=== PATIENT | female | born 1980 | race Caucasian/White ===

== ENCOUNTER → 2016-06-14 | Outpatient (CLI) | payer OTHER ==
[~2016-06-14] MED LIST: AMIT25TA10 PO; HCTZ PO; MIREIUD IU; PANT40TA2 PO; PERC5TAB PO; ZANT300T PO
--- NOTE | 2016-06-14 17:53 | REP ---
Digital screening mammography with CAD: History: Baseline mammogram. No comparison studies. Findings: There is asymmetric density in the upper outer quadrant of the left breast compared to the right with a questionable mass lesion approximately 1.5 cm in diameter. This merits further evaluation. The right breast is unremarkable mammographically. No worrisome skin change is seen. No microcalcification is observed. Impression: BIRADS category 0 incomplete breast imaging. Asymmetric density question mass upper outer quadrant left breast. Diagnostic left breast mammography and focused left breast sonography suggested. BI-RADS/ACR category 0 mammogram, incomplete. Additional imaging and/or prior images are needed before a final assessment can be assigned. This mammogram was interpreted with the aid of an FDA-approved computer-aided detection system. The patient states she/he had a clinical breast exam in December 2015. The patient letter being requested is M0.
== END ==
LOC: M WHC 15:33
PROVIDERS: ATTEND Obstetrics & Gynecology
DX: Z12.31 Encounter for screening mammogram for malignant neoplasm of breast (principal); R92.8 Other abnormal and inconclusive findings on diagnostic imaging of breast

== ENCOUNTER → 2016-06-20 | Outpatient (CLI) | payer OTHER ==
--- NOTE | 2016-06-20 15:15 | REP ---
DIGITAL DIAGNOSTIC UNILATERAL LEFT BREAST MAMMOGRAPHY WITH CAD AND FOCUSED LEFT BREAST SONOGRAPHY: HISTORY: Baseline screening mammography from June 14, 2016 was BIRADS category 0 incomplete because of asymmetric somewhat nodular upper outer quadrant density on the left. Diagnostic imaging was recommended. MAMMOGRAPHIC FINDINGS: Heterogeneously dense fibroglandular tissue is seen in the upper outer quadrant of the left breast on magnified focal spot compression CC, MLO and true ML views. The area in question compresses away and is less nodular. No mass is seen. No spiculation is observed. No microcalcification is seen. SONOGRAPHIC FINDINGS: Focused left breast sonography shows heterogeneous fibroglandular background echotexture. There is one 5 mm cyst seen at approximate 12 o'clock position. This would not account for the mammographic opacity seen on the screening study. No other cyst is seen. No mass lesion is seen by ultrasound. No suspicious sonographic finding. IMPRESSION: BIRADS category 2 benign left breast imaging. Repeat screening mammography recommended 1 year. BI-RADS/ACR category 2 mammogram. Benign finding(s). Routine annual screening mammography (for women over age 40). This mammogram was interpreted with the aid of an FDA-approved computer-aided detection system. The patient states she/he had a clinical breast exam in December 2015. The patient letter being requested is M1. Signed by Curt Heredia MD 06/20/2016 04:32 P
== END ==
LOC: M RAD 13:49
PROVIDERS: ATTEND Obstetrics & Gynecology
DX: Z12.31 Encounter for screening mammogram for malignant neoplasm of breast (principal); R92.8 Other abnormal and inconclusive findings on diagnostic imaging of breast
CPT/HCPCS: 76642; G0206

== ENCOUNTER → 2016-11-29 | Outpatient (CLI) | payer OTHER, SELFPAY ==
--- NOTE | 2016-11-29 20:23 | ECGEPIP ---
Stationary ECG Study [facility] Test Date: 2016-11-29 Pat Name: LINDSAY ALLEN Department: Room: - Gender: F [employer]: ANDREEA : 1980 Requested By: Ty Roy @ [facility] Order Number: [id number] Reading MD: Kelley Villeda Measurements Intervals [place] Rate: 67 P: 43 [place]: 157 QRS: 0 QRSD: 76 T: 20 QT: 380 QTc: 402 Interpretive Statements SINUS RHYTHM STABLE C/W 06/24/15 Electronically Signed On 11-29-2016 20:23:30 EDT by Kelley Villeda
== END ==
LOC: M EKG 17:23
PROVIDERS: ATTEND Orthopaedic Surgery
DX: Z01.818 Encounter for other preprocedural examination (principal); I10 Essential (primary) hypertension

== ENCOUNTER → 2018-02-05 | Outpatient (CLI) | payer OTHER | LOC: M ADAMS 16:48 | DX: M54.42 Lumbago with sciatica, left side (principal) | CPT/HCPCS: 72100 ==

== ENCOUNTER → 2019-12-16 | Outpatient (CLI) | payer OTHER ==
[~2019-12-16] MED LIST changes: +ATOR1TAB21; +FLUO10CA16; +METO1TAB7; +PANT40TA29 PO; +RANI15TA PO
--- NOTE | 2019-12-17 12:51 | REP ---
Examination Requested: Cookie Swallow Reason For Exam: Gastroesophageal reflux disease The procedure was performed by LILY Shahid, under the direct supervision of Dr. Heredia. The procedure was performed with Yakelin Zapata from speech pathology present. 5 ml aliquots of thin, pudding, mixed fruit, soft food, hard food and pill consistency barium was administered. No aspiration or penetration was visualized during the course of the exam. The detailed report of this examination will be provided by speech pathology. 0.9 minutes of fluoroscopy time was utilized for this procedure. Reviewed by LILY Bo 12/17/2019 07:46 A Electronically Signed by Curt Heredia MD 12/17/2019 12:42 P
== END ==
LOC: M ST 13:26
PROVIDERS: ATTEND Physician Assistant Medical
DX: K21.9 Gastro-esophageal reflux disease without esophagitis (principal)

== ENCOUNTER → 2020-01-05 | Outpatient (CLI) | payer OTHER ==
--- NOTE | 2020-02-19 11:55 | REP ---
RIGHT UPPER QUADRANT ULTRASOUND: HISTORY: Pain. FINDINGS: Real time sonographic evaluation of the right upper quadrant is performed. The gallbladder demonstrates no evidence of intraluminal sludge or calculi, wall thickening or pericholecystic fluid. There is no intrahepatic or extrahepatic biliary dilatation, the common bile duct measuring 4 mm. The liver demonstrates diffuse heterogeneous increased echotexture compatible with diffuse fibrofatty infiltration. No gross liver mass is seen. The visualized pancreas is grossly unremarkable but not well seen due to overlying bowel gas. The right kidney demonstrates no hydronephrosis with normal size of 10.9 cm in length. IMPRESSION: Diffuse fatty infiltration of the liver. No other significant finding. MTDD
== END ==
LOC: M RAD 08:03
PROVIDERS: ATTEND Internal Medicine Gastroenterology
DX: R10.11 Right upper quadrant pain (principal); K76.0 Fatty (change of) liver, not elsewhere classified

== ENCOUNTER 2020-01-07 10:25 | Day surgery (SDC) | payer OTHER ==
[~2020-01-07 10:25] MED LIST changes: -ATOR1TAB21; -FLUO10CA16; -METO1TAB7; -PANT40TA29 PO; -RANI15TA PO
[2020-01-07] MEDS ORDERED: fentaNYL 100 MCG/2 ML INJECTION (J3010) ONE (11:28)
[2020-01-07] MEDS ORDERED: LIDOCAINE 2% 100MG/5ML SDV (FOR ANES.) ONE (11:28)
[2020-01-07] MEDS ORDERED: propofoL 200 MG/20 ML VIAL ONE (11:28)
--- NOTE | 2020-02-04 11:28 | ROOR ---
Patient Name: Melanie Maldonado Procedure Date: 01/07/2020 11:32 AM Date of : 1980 Age: 39 Room: [facility] Gender: Female Note Status: Hip Hop Artist Override Procedure: Upper Endoscopy + Biopsies Indications: Epigastric abdominal pain, Heartburn, Exclusion of Zhong's esophagus Providers: Horacio Mosqueda MD Referring MD: Diamond Silverman NP Requesting Provider: Medicines: Monitored Anesthesia Care Complications: No immediate complications. Procedure: Pre-Anesthesia Assessment: - The heart rate, respiratory rate, oxygen saturations, blood pressure, adequacy of pulmonary ventilation, and response to care were monitored throughout the procedure. The Endoscope was introduced through the mouth, and advanced to the second part of duodenum. The upper GI endoscopy was accomplished without difficulty. The patient tolerated the procedure well. Findings: The Z-line was irregular and was found 40 cm from the incisors. Multiple biopsies were obtained with cold forceps for evaluation to rule out Zhong's Esophagus randomly at the gastroesophageal junction. No other significant abnormalities were identified in a careful examination of the stomach. Biopsies were taken with a cold forceps in the gastric antrum for Helicobacter pylori testing. The exam of the duodenum was otherwise normal. Impression: - Z-line irregular, 40 cm from the incisors. - Multiple biopsies were obtained at the gastroesophageal junction. - Biopsies were taken with a cold forceps for Helicobacter pylori testing. - The examination was otherwise normal. Recommendation: - Patient has a contact number available for emergencies. The signs and symptoms of potential delayed complications were discussed with the patient. Return to normal activities tomorrow. Written discharge instructions were provided to the patient. - High fiber diet. - Discharge patient to home. - Follow an antireflux regimen. - Continue present medications. - Await pathology results. - Telephone GI clinic for pathology results in 1 week. - Return to referring physician. - The findings and recommendations were discussed with the patient. Horacio Mosqueda MD Horacio Mosqueda MD 01/07/2020 11:47:23 AM Number of Addenda: 0 Note Initiated On: 01/07/2020 11:32 AM Estimated Blood Loss: Estimated blood loss: none.
[2020-03-05] MEDS ORDERED: RANI15TA PO (15:29)
[2020-03-05] MEDS ORDERED: METO1TAB7 (15:29)
[2020-03-05] MEDS ORDERED: PANT40TA29 PO (15:29)
[2020-03-05] MEDS ORDERED: ATOR1TAB21 (15:29)
[2020-03-05] MEDS ORDERED: FLUO10CA16 (15:29)
== END 2020-01-07 12:42 | disposition home or self-care (01) ==
LOC: M SDC 10:25
PROVIDERS: ATTEND Internal Medicine Gastroenterology
DX: K22.8 Other specified diseases of esophagus (principal); K29.70 Gastritis, unspecified, without bleeding; R10.13 Epigastric pain; I10 Essential (primary) hypertension; Z79.899 Other long term (current) drug therapy; Z88.2 Allergy status to sulfonamides
CPT/HCPCS: 43239; 88305; J3010

== ENCOUNTER → 2020-03-06 | Outpatient (CLI) | payer OTHER ==
[~2020-03-06] MED LIST changes: +ATOR1TAB21; +FLUO10CA16; +METO1TAB7; +PANT40TA29 PO; +RANI15TA PO
== END ==
LOC: M LABSMTC 08:23
PROVIDERS: ATTEND Anesthesiology
DX: Z01.812 Encounter for preprocedural laboratory examination (principal); Z20.828 Contact with and (suspected) exposure to other viral communicable diseases
CPT/HCPCS: C9803; U0003

== ENCOUNTER 2020-03-11 08:33 | Day surgery (SDC) | payer OTHER ==
[~2020-03-11] VITALS: Ht 157.5 cm; Wt 89.4 kg
[~2020-03-11 08:33] MED LIST changes: +LR 1,000 ML IV ONE; +MIDAZOLAM INJ 2MG/2ML VIAL (J2250 PER 1MG) As Ordered ONE; +fentaNYL 100 MCG/2 ML INJECTION (J3010) As Ordered ONE
[2020-03-11] MEDS ORDERED: METOCLOPRAMIDE INJ 10MG/2ML VIAL (J2765 PER 1) As Ordered ONE (10:31)
[2020-03-11] MEDS ORDERED: dexameTHASONE 4 MG/ML 1ML VIAL (J1100 PER 1MG) As Ordered ONE (10:31)
[2020-03-11] MEDS ORDERED: LIDOCAINE 2% 100MG/5ML SDV (FOR ANES.) As Ordered ONE (10:31)
[2020-03-11] MEDS ORDERED: ROCURONIUM BROMIDE 50 MG/5 ML VIAL As Ordered ONE (10:32)
[2020-03-11] MEDS ORDERED: SUGAMMADEX SODIUM 500 MG/5 ML VIAL (BRIDION) As Ordered ONE (10:34)
[2020-03-11] MEDS ORDERED: ACETAMINOPHEN 1000MG 100ML IV BTL (OFIRMEV) (J0131 PER 10MG) As Ordered ONE (10:34)
[2020-03-11] MEDS ORDERED: KETOROLAC 60MG 2ML VIAL As Ordered ONE (10:34)
[2020-03-11] MEDS ORDERED: propofoL 200 MG/20 ML VIAL As Ordered ONE (10:35)
[2020-03-11] MEDS ORDERED: GLYCOPYRROLATE INJ 0.2 MG/ML 2 ML VIAL As Ordered ONE (10:39)
[2020-03-11] MEDS ORDERED: ePHEDrine SULFATE 25 MG/5 ML(5MG/ML) SYRINGE As Ordered ONE (10:50)
[2020-03-11] MEDS ORDERED: NORCO, ANEXSIA 5/325MG TABLET (HYDROcodone/ACETAMINOPHEN) PO PRN (11:30)
[2020-03-11] MEDS ORDERED: NORCO, ANEXSIA 5/325MG TABLET (HYDROcodone/ACETAMINOPHEN) As Ordered ONE ×2 (11:32→11:34)
[2020-03-11] MEDS ORDERED: METOCLOPRAMIDE INJ 10MG/2ML VIAL (J2765 PER 1) IV PRN (11:45)
[2020-03-11] MEDS ORDERED: LR 1,000 ML IV SCH (11:45)
[2020-03-11] MEDS ORDERED: ONDANSETRON 4MG/2ML VIAL IV PRN (11:45)
[2020-03-11] MEDS ORDERED: oxyCODONE 5MG TAB PO PRN (11:45)
[2020-03-11] MEDS ORDERED: fentaNYL 100 MCG/2 ML INJECTION (J3010) IV PRN (11:45)
[2020-03-11] MEDS ORDERED: IBUPROFEN 600MG TAB PO PRN (11:45)
[2020-03-11 12:40] VITALS: BP 110/69
--- NOTE | 2020-03-12 06:55 | RO ---
DATE OF OPERATION: 03/11/2020 PREOPERATIVE DIAGNOSIS: Pain. POSTOPERATIVE DIAGNOSIS: Pain. FINDINGS: Normal pelvis. PROCEDURE: Diagnostic laparoscopy. SURGEON: Dr. Kera Liz TALENT AGENT: None. ANESTHESIA: General endotracheal anesthesia. SPECIMENS: None. BRIEF DESCRIPTION OF PROCEDURE AND FINDINGS: Melanie was brought to the operating room, where sufficient general endotracheal anesthesia was induced. She was prepped, draped, and positioned in the usual sterile fashion. She did not have a uterus to put a manipulator on, but we did put a sponge stick in the vagina to facilitate anatomic location from above, and then attention was turned to the abdomen, where a transverse semilunar incision was made below the umbilicus. Sharp and blunt dissection were continued through the subcutaneous tissues to the level of the rectus fascia, which was elevated with Diane clamps transversely, incised under direct visualization. Zero Vicryl retention sutures were placed, and the peritoneum was entered directly in outpatient laparoscopic technique, and the Amy cannula placed and CO2 insufflation begun. After adequate CO2 insufflation, the peritoneal cavity was visualized, and there were no adhesions. There was a normal abdomen noted. There were normal intestines. The scar areas from her previous hysterectomy were normal. There were no adhesions of the intestines to this area. The appendix was visualized and was normal. There were no adhesions identified other than a single filmy adhesion of the epiploicae of the descending bowel on the left side that did not distort, move, or alter anything, so really a normal appearance, since virtually everyone has one or two of those, and there were no areas of surgical scarring, tight adhesion, or other abnormality. Upper abdomen was similarly clear. Given these emphatically normal findings, the procedure was ended without any need for taking down any adhesions, because we could not find any to work on, and there certainly was no evidence of other lesion within the pelvis or abdomen as visualized. Pictures were taken to document the case, and the procedure was ended. CO2 was allowed to escape the abdomen. The fascial wound was closed with 0 Vicryl retention sutures, and then the skin was closed with 3-0 Vicryl in a subcutaneous stitch with a dry sterile dressing then applied. Estimated blood loss for the procedure was maybe 5 mL. fluid replacement was crystalloid. COMPLICATIONS: None. CONDITION AND DISPOSITION: Melanie tolerated the procedure well and went to the recovery room in good condition. [facility]
== END 2020-03-11 12:51 | disposition home or self-care (01) ==
LOC: M SDC 08:33
PROVIDERS: ATTEND Obstetrics & Gynecology
DX: R10.2 Pelvic and perineal pain (principal); I10 Essential (primary) hypertension; E78.5 Hyperlipidemia, unspecified; K21.9 Gastro-esophageal reflux disease without esophagitis; F41.9 Anxiety disorder, unspecified; Z79.899 Other long term (current) drug therapy; Z88.2 Allergy status to sulfonamides
CPT/HCPCS: 49320; J0131; J1100; J1885; J2250; J2765; J3010

== ENCOUNTER → 2020-10-06 | Outpatient (REF) | payer OTHER ==
[~2020-10-06] MED LIST changes: -LR 1,000 ML IV ONE; -MIDAZOLAM INJ 2MG/2ML VIAL (J2250 PER 1MG) As Ordered ONE; -fentaNYL 100 MCG/2 ML INJECTION (J3010) As Ordered ONE
[2020-10-08 13:08] LABS: ANTINUCLEAR ANTIBODIES DIRECT Negative (Negative)
== END ==
LOC: M LAB REF 16:10
PROVIDERS: ATTEND Physician Assistant Medical
DX: R20.2 Paresthesia of skin (principal)

== ENCOUNTER → 2020-10-09 | Outpatient (CLI) | payer OTHER ==
--- NOTE | 2020-10-09 12:37 | REP ---
INDICATION: TARSAL TUNNEL SYNDROME. COMPARISON: None. TECHNIQUE: Multiple sequences are obtained in the axial, coronal and sagittal planes. FINDINGS: The Achilles, anterior tibial, flexor hallucis longus, flexor digitorum longus and peroneal tendons are all intact without significant tenosynovitis. The posterior tibial tendon appears intact. There is mild fluid surrounding the distal aspect which may represent mild tenosynovitis. The anterior and posterior talofibular, calcaneofibular and deltoid ligaments appear intact. Plantar tendon appears intact, with mild increased signal on T2 weighted images in the very proximal plantar tendon. This is compatible with mild plantar tendinitis. There is adjacent edema in the deeper plantar soft tissues compatible with mild to moderate plantar fasciitis. There is mild reactive marrow edema in the adjacent inferior posterior calcaneus. Sinus tarsi appears unremarkable. No ganglion cyst is seen. There is mild fluid at the margins of the tibiotalar joint. The cartilaginous surfaces are smooth. No osteochondral defect is seen at the tibiotalar joint. There is marrow edema in the lateral base of the cuboid which may represent stress related change or reactive marrow edema due to adjacent arthritic change at the calcaneocuboid joint. There is a small bone island in the talar dome. IMPRESSION: Suspect mild tenosynovitis of the distal posterior tibial tendon. Otherwise no evidence of tendon or ligament tear. There are findings of mild plantar tendinitis and mild to moderate plantar fasciitis. There is mild reactive marrow edema in the adjacent inferior posterior calcaneus. There is marrow edema in the lateral base of the cuboid which may represent stress related change or reactive marrow edema due to adjacent arthritic change at the calcaneocuboid joint. <Electronically signed by Burton Rios > 10/09/20 [id number]
== END ==
LOC: M RAD 10:39
DX: G57.52 Tarsal tunnel syndrome, left lower limb (principal); M72.2 Plantar fascial fibromatosis

== ENCOUNTER → 2020-11-18 | Outpatient (REF) | payer OTHER ==
[2020-11-18 13:29] LABS: AMORPHOUS SEDIMENT SMALL (NEGATIVE); APPEARANCE, URINE TURBID (CLEAR); BACTERIA, URINE AUTO 1+ (NEGATIVE); BILIRUBIN, URINE AUTO NEGATIVE (NEGATIVE); BLOOD, URINE BLOOD 1+ (NEGATIVE); COLOR, URINE AMBER (YELLOW); GLUCOSE, URINE (UA) AUTO NEGATIVE (NEGATIVE); KETONE, URINE AUTO NEGATIVE (NEGATIVE); LEUKOCYTE ESTERASE, URINE AUTO NEGATIVE (NEGATIVE); MUCUS, URINE SMALL (NEGATIVE); NITRITE, URINE AUTO NEGATIVE (NEGATIVE); PROTEIN, URINE AUTO NEGATIVE (NEGATIVE); RBC, URINE AUTO 2 /HPF (0-3); SPECIFIC GRAVITY URINE AUTO 1.023 (1.002-1.035); SQUAMOUS EPITHELIAL CELL UR AU 2 /HPF (0-6); UROBILINOGEN, URINE AUTO 0.2 mg/dL (0.0-2.0); WBC, URINE AUTO 0 /HPF (0-3)
== END ==
LOC: M LAB REF 12:06
PROVIDERS: ATTEND Internal Medicine
DX: Z01.810 Encounter for preprocedural cardiovascular examination (principal)

== ENCOUNTER 2021-04-27 14:48 | Outpatient (CLI) | payer OTHER ==
[~2021-04-27] VITALS: Ht 157.5 cm; Wt 81.6 kg
[~2021-04-27 14:48] MED LIST changes: +ALBUTEROL 90 MCG/ACT 8GM HFA INHALER INH PRN; +ALBUTEROL SULFATE 2.5 MG/0.5 ML INH NEB SOLN INH PRN; +EPINEPHrine INJ 1 MG/ML 1ML AMP IM PRN; -FLUO10CA16; +FLUO10CA18; +NS 1,000 ML IV SCH; +diphenhydrAMINE 50MG/ML VIAL (J1200) IV PRN; +methylPREDNISolone 125MG 2ML VIAL IV PRN
[2021-04-27] MEDS ORDERED: CASIRIVIMAB (REGN10933) 600 MG, IMDEVIMAB (REGN10987) 600 MG in NS 250 ML IV ONE (15:00)
[2021-04-27] MEDS ORDERED: diphenhydrAMINE 25MG CAP PO ONE (15:00)
[2021-04-27] MEDS ORDERED: ACETAMINOPHEN TAB 650MG DOSE (2X325MG) PO ONE (15:00)
[2021-04-27 15:31] VITALS: BP 130/63
[2021-04-27 16:01] VITALS: BP 117/59
[2021-04-27 16:31] VITALS: BP 122/60
[2021-04-27 17:31] VITALS: BP 121/62
== END 2021-04-27 17:30 | disposition home or self-care (01) ==
LOC: M OPCLI4PR 14:48
PROVIDERS: ATTEND Physician Assistant Medical
DX: U07.1 COVID-19 (principal); Z88.2 Allergy status to sulfonamides

== ENCOUNTER → 2021-08-29 | Outpatient (CLI) | payer OTHER ==
[~2021-08-29] MED LIST changes: -ALBUTEROL 90 MCG/ACT 8GM HFA INHALER INH PRN; -ALBUTEROL SULFATE 2.5 MG/0.5 ML INH NEB SOLN INH PRN; -EPINEPHrine INJ 1 MG/ML 1ML AMP IM PRN; -NS 1,000 ML IV SCH; -diphenhydrAMINE 50MG/ML VIAL (J1200) IV PRN; -methylPREDNISolone 125MG 2ML VIAL IV PRN
== END ==
LOC: M WHC 10:15
PROVIDERS: ATTEND Obstetrics & Gynecology
DX: Z12.31 Encounter for screening mammogram for malignant neoplasm of breast (principal)

== ENCOUNTER → 2021-11-02 | Outpatient (CLI) | payer OTHER | LOC: M WHC 06:40 | PROVIDERS: ATTEND Obstetrics & Gynecology | DX: R10.2 Pelvic and perineal pain (principal); Z90.722 Acquired absence of ovaries, bilateral; Z90.710 Acquired absence of both cervix and uterus ==

== ENCOUNTER → 2021-11-22 | Outpatient (REF) | payer OTHER | LOC: M LAB REF 18:38 | PROVIDERS: ATTEND Registered Nurse | DX: R19.7 Diarrhea, unspecified (principal) ==

== ENCOUNTER → 2022-05-26 | Outpatient (CLI) | payer OTHER | LOC: M WUC 10:18 | PROVIDERS: ATTEND Physician Assistant Medical | DX: M25.521 Pain in right elbow (principal) ==

== ENCOUNTER → 2022-09-07 | Outpatient (CLI) | payer OTHER | LOC: M ADAMS 11:05 | PROVIDERS: ATTEND Podiatrist | DX: M76.72 Peroneal tendinitis, left leg (principal); M19.072 Primary osteoarthritis, left ankle and foot ==

== ENCOUNTER → 2022-09-20 | Outpatient (REF) | payer OTHER | LOC: M SFHCWAGY 13:00 | PROVIDERS: ATTEND Obstetrics & Gynecology | DX: Z12.72 Encounter for screening for malignant neoplasm of vagina (principal); Z77.9 Other contact with and (suspected) exposures hazardous to health | CPT/HCPCS: 87624; G0123 ==

== ENCOUNTER → 2022-09-20 | Outpatient (CLI) | payer OTHER | LOC: M WHC 08:26 | PROVIDERS: ATTEND Obstetrics & Gynecology | DX: N63.22 Unspecified lump in the left breast, upper inner quadrant (principal) | CPT/HCPCS: 76642; 77066; G0279 ==

== ENCOUNTER → 2023-07-26 | Outpatient (CLI) | payer OTHER | LOC: M WUC 14:26 | PROVIDERS: ATTEND Physician Assistant Medical | DX: M79.604 Pain in right leg (principal); R20.2 Paresthesia of skin; M54.31 Sciatica, right side ==

== ENCOUNTER → 2023-08-30 | Outpatient (CLI) | payer OTHER | LOC: M RAD 12:22 | PROVIDERS: ATTEND Physician Assistant Medical | DX: M79.652 Pain in left thigh (principal) ==

== ENCOUNTER → 2023-09-28 | Outpatient (CLI) | payer OTHER ==
[~2023-09-28] MED LIST changes: +FLUO-290; -FLUO10CA18
== END ==
LOC: M WHC 07:09
PROVIDERS: ATTEND Physician Assistant Medical
DX: Z12.31 Encounter for screening mammogram for malignant neoplasm of breast (principal); R92.333 Mammographic heterogeneous density, bilateral breasts

== ENCOUNTER → 2023-12-03 | Outpatient (REF) | payer OTHER | LOC: M WUC 16:29 | PROVIDERS: ATTEND Student in an Organized Health Care Education/Training Program | DX: R30.0 Dysuria (principal) ==

== ENCOUNTER → 2024-08-12 | Outpatient (CLI) | payer OTHER ==
[2024-08-12 14:29] LABS: FOLLICLE STIMULATING HORMONE 39.9 mIU/ML
== END ==
LOC: M PLALAB 10:35
PROVIDERS: ATTEND Specialist
DX: N95.1 Menopausal and female climacteric states (principal)

== ENCOUNTER → 2024-12-02 | Outpatient (CLI) | payer OTHER | LOC: M WUC 13:05 | PROVIDERS: ATTEND Physician Assistant Medical | DX: M79.644 Pain in right finger(s) (principal) ==

== ENCOUNTER → 2025-02-10 | Outpatient (REF) | payer OTHER ==
[2025-02-10 17:34] LABS: INR 0.91
[2025-02-10 18:43] LABS: IRON (FE) 112.0 UG/DL (50-170); PERCENT SATURATION 25.1 % (13.2-45.0)
== END ==
LOC: M LAB REF 16:56
PROVIDERS: ATTEND Internal Medicine
DX: M77.31 Calcaneal spur, right foot (principal); M79.671 Pain in right foot; M72.2 Plantar fascial fibromatosis; D64.9 Anemia, unspecified

== ENCOUNTER → 2025-03-23 | Outpatient (REF) | payer OTHER ==
[~2025-03-23] MED LIST changes: +DULO1CAP5 PO; +ONDA-83 PO
== END ==
LOC: M LAB REF 17:08
PROVIDERS: ATTEND Physician Assistant Medical
DX: R10.11 Right upper quadrant pain (principal)

== ENCOUNTER 2025-03-24 12:07 | Emergency (ER) | payer OTHER ==
[~2025-03-24] VITALS: Ht 157.5 cm; Wt 81.3 kg
[~2025-03-24 12:07] MED LIST changes: -DULO1CAP5 PO; -ONDA-83 PO
[2025-03-24] MEDS ORDERED: DULO1CAP5 PO (12:23)
[2025-03-24 13:02] LABS: BASO # 0.0 10^3/uL (0.0-0.2); BASO % 0.6 % (0.0-1.0); EOS # 0.1 10^3/uL (0.0-0.5); EOS % 1.6 % (0.0-3.0); LYMPH # 2.8 10^3/uL (1.5-5.0); LYMPH % 45.0 % (24.0-44.0); MONO # 0.5 10^3/uL (0.0-0.8); MONO % 7.4 % (2.0-8.0); NEUTROPHILS # 2.8 10^3/uL (1.5-8.5); NEUTROPHILS % 44.9 % (36.0-66.0); PLATELET COUNT, AUTOMATED 286 10^3/uL (150-450)
[2025-03-24 13:25] LABS: ALT/SGPT 26 U/L (7.0-40); AST/SGOT 19 U/L (<34); CALCIUM LEVEL 10.0 MG/DL (8.5-10.1); CARBON DIOXIDE LEVEL 26 MMOL/L (20-31); CHLORIDE LEVEL 106 MMOL/L (98-107); CREATININE FOR GFR 0.73 MG/DL (0.55-1.30); GLOMERULAR FILTRATION RATE > 90.0 (>58); POTASSIUM SERUM 3.9 MMOL/L (3.5-5.1); SODIUM LEVEL 143 MMOL/L (136-145)
[2025-03-24] MEDS: ONDANSETRON 4MG ORAL DISINTEGRATING TAB PO ONE (17:20)
[2025-03-24] MEDS: KETOROLAC TROMETHAMINE 10 MG TAB PO ONE (17:20)
[2025-03-24 17:39] LABS: KETONE, URINE AUTO RFX NEGATIVE (NEGATIVE); MUCUS, URINE RFX SMALL (NEGATIVE); NITRITE, URINE AUTO RFX NEGATIVE (NEGATIVE); RBC, URINE AUTO RFX 2 /HPF (0-3); SQUAM EPITHELIAL CELL UR AURFX 6 /HPF (0-6); TRANSITIONAL EPITHELIAL AU RFX <1 /HPF
[2025-03-24 17:51] LABS: LEUKOCYTE ESTERASE UR AUTO RFX 1+ (NEGATIVE); WBC, URINE AUTO RFX 12 /HPF (0-3)
[2025-03-24 18:27] VITALS: BP 118/63; TEMP 97.2; O2SAT 100
[2025-03-24] MEDS ORDERED: ONDA-83 PO (18:42)
== END 2025-03-24 18:51 | disposition home or self-care (01) ==
LOC: M ED 12:07
DX: R10.11 Right upper quadrant pain (principal); K57.30 Diverticulosis of large intestine without perforation or abscess without bleeding; K86.89 Other specified diseases of pancreas; I10 Essential (primary) hypertension; Z79.899 Other long term (current) drug therapy; Z88.2 Allergy status to sulfonamides

== ENCOUNTER → 2025-03-24 | Outpatient (CLI) | payer OTHER | LOC: M WHC 06:41 | PROVIDERS: ATTEND Physician Assistant Medical | DX: K85.90 Acute pancreatitis without necrosis or infection, unspecified (principal) ==

== ENCOUNTER → 2025-05-05 | Outpatient (REF) | payer OTHER ==
[~2025-05-05] MED LIST changes: +DULO1CAP5 PO; +ONDA-83 PO
[2025-05-05 18:31] LABS: APPEARANCE, URINE HAZY (CLEAR); BACTERIA, URINE AUTO NEGATIVE (NEGATIVE); BILIRUBIN, URINE AUTO NEGATIVE (NEGATIVE); BLOOD, URINE BLOOD 1+ (NEGATIVE); CALCIUM OXALATE CRYSTALS MODERATE; GLUCOSE, URINE (UA) AUTO NEGATIVE (NEGATIVE); KETONE, URINE AUTO NEGATIVE (NEGATIVE); LEUKOCYTE ESTERASE, URINE AUTO 3+ (NEGATIVE); MUCUS, URINE SMALL (NEGATIVE); NITRITE, URINE AUTO NEGATIVE (NEGATIVE); PROTEIN, URINE AUTO NEGATIVE (NEGATIVE); RBC, URINE AUTO 13 /HPF (0-3); SPECIFIC GRAVITY URINE AUTO 1.021 (1.002-1.035); SQUAMOUS EPITHELIAL CELL UR AU 2 /HPF (0-6); TRANSITIONAL EPITHELIAL AUTO <1 /HPF; UROBILINOGEN, URINE AUTO 0.2 mg/dL (0.0-2.0); WBC, URINE AUTO 67 /HPF (0-3)
== END ==
LOC: M LAB REF 17:11
PROVIDERS: ATTEND Internal Medicine
DX: Z01.818 Encounter for other preprocedural examination (principal)